=== PATIENT | male | born 1965 | race Two or more races ===

== ENCOUNTER 2017-03-24 22:07 | Inpatient (IN) | payer MEDICAID, OTHER, SELFPAY ==
[~2017-03-24] VITALS: Ht 167.6 cm; Wt 76.1 kg
[2017-03-24 23:22] LABS: BLOOD UREA NITROGEN 20 mg/dL (7-18)
[2017-03-25] MEDS ORDERED: FENTANYL PF 250 MCG/5ML ONE (01:07)
[2017-03-25] MEDS ORDERED: MIDAZOLAM 1 MG/ML, 2ML ONE (01:07)
[2017-03-25] MEDS ORDERED: ROCURONIUM 10 MG/ML ONE (01:13)
[2017-03-25] MEDS ORDERED: NEOSTIGMINE 1 MG/ML, 10ML ONE (01:13)
[2017-03-25] MEDS ORDERED: SUCCINYLCHOLINE 20 MG/ML, 10ML ONE (01:13)
[2017-03-25] MEDS ORDERED: PROPOFOL 10 MG/ML, 20ML ONE (01:13)
[2017-03-25] MEDS ORDERED: ONDANSETRON 2MG/ML, 2ML ONE (01:13)
[2017-03-25] MEDS ORDERED: KETOROLAC 30 MG/1 ML ONE (01:13)
[2017-03-25] MEDS ORDERED: CEFAZOLIN 1,000 MG ONE (01:13)
[2017-03-25] MEDS ORDERED: GLYCOPYRROLATE 0.2MG/1ML ONE (01:13)
[2017-03-25] MEDS ORDERED: OXYcodone 5 MG/5 ML ORAL.SOL UDC PO PRN (01:30)
[2017-03-25] MEDS ORDERED: METOPROLOL 1 MG/ML, 5ML IV PRN (01:30)
[2017-03-25] MEDS ORDERED: ACETAMINOPHEN 325 MG TABLET PO PRN (01:30)
[2017-03-25] MEDS ORDERED: hydrALAzine 20 MG/ML, 1ML IV PRN (01:30)
[2017-03-25] MEDS ORDERED: MEPERIDINE/PF 25MG/0.5ML IVPush PRN (01:30)
[2017-03-25] MEDS ORDERED: ONDANSETRON 2MG/ML, 2ML IVPush PRN (01:30)
[2017-03-25] MEDS ORDERED: PROMETHAZINE 25 MG/ML, 1ML IV PRN (01:30)
[2017-03-25] MEDS ORDERED: LABETALOL 5MG/ML, 20ML IV PRN (01:30)
[2017-03-25] MEDS ORDERED: ALBUTEROL SULFATE 2.5 MG/3 ML NPPB PRN (01:30)
[2017-03-25] MEDS ORDERED: EPHEDRINE 50 MG/ML, 1ML IVPush PRN (01:30)
[2017-03-25] MEDS ORDERED: HYDROmorphone 1 MG/ML, 1ML IV PRN (01:30)
[2017-03-25] MEDS ORDERED: ACETAMINOPHEN 650 MG/20.3 ML UDC ONE (01:53)
[2017-03-25] MEDS ORDERED: OXYcodone 5 MG/5 ML ORAL.SOL UDC ONE (01:53)
[2017-03-25] MEDS ORDERED: FENTANYL PF 100 MCG/2ML ONE (01:53)
[2017-03-25] MEDS ORDERED: HYDROcodone/APAP 10/325 MG TABLET PO PRN (02:00)
[2017-03-25] MEDS: FENTANYL PF 100 MCG/2ML IV PRN ×2 (02:00→02:05)
[2017-03-25] MEDS ORDERED: VANCOMYCIN PER PHARMACY MC PRN (02:00)
[2017-03-25] MEDS ORDERED: VANCOMYCIN PMX 1GM/200ML 200 ML IVPB SCH (02:00)
[2017-03-25] MEDS ORDERED: CEFAZOLIN PMX 2GM/50ML 50 ML IVPB SCH (02:00)
[2017-03-25] MEDS: HEPARIN 5,000 UNITS/ML, 1ML SQ SCH ×3 (02:30→17:50)
[2017-03-25 02:45] VITALS: BP 117/75
[2017-03-25] MEDS: OXYcodone/APAP 5/325MG TABLET PO PRN ×4 (03:13→19:49)
[2017-03-25] MEDS ORDERED: PHARMACOKINETIC MONITORING MC PRN (03:30)
[2017-03-25] MEDS ORDERED: VANCOMYCIN 1,300 MG in SODIUM CHLORIDE 0.9% 250 ML IV SCH ×2 (03:30→21:30)
[2017-03-25] MEDS ORDERED: PHARMACOKINETIC CONSULTATION MC ONE (03:30)
[2017-03-25 04:39] LABS: BLOOD UREA NITROGEN 20 mg/dL (7-18)
[2017-03-25] MEDS: PIPERACILLIN/TAZO/PMX 3.375GM 50 ML IV SCH ×3 (06:48→21:29)
[2017-03-25 07:12] VITALS: BP 107/64
[2017-03-25] MEDS: INSULIN REGULAR 100 UNITS/ML, 3ML VIAL SQ-INSULIN SCH ×4 (09:00→21:30)
[2017-03-25 13:18] VITALS: BP 101/58
[2017-03-25 19:21] VITALS: BP 118/71
[2017-03-25] MEDS: INSULIN DETEMIR 100 UNITS/ML, PEN SQ-INSULIN SCH (20:05)
[2017-03-25] MEDS: METOPROLOL TARTRATE 25 MG TABLET PO SCH (20:06)
[2017-03-26 01:32] VITALS: BP 108/63
[2017-03-26] MEDS: HEPARIN 5,000 UNITS/ML, 1ML SQ SCH ×3 (02:00→18:21)
[2017-03-26] MEDS: OXYcodone/APAP 5/325MG TABLET PO PRN ×5 (02:02→18:38)
[2017-03-26] MEDS: PIPERACILLIN/TAZO/PMX 3.375GM 50 ML IV SCH ×4 (03:36→20:52)
[2017-03-26] MEDS: morphine SULFATE 10 MG/ML, 1ML IVPush PRN ×4 (04:29→14:15)
[2017-03-26] MEDS: ASPIRIN 81 MG TABLET EC PO SCH (05:26)
[2017-03-26] MEDS: METOPROLOL TARTRATE 25 MG TABLET PO SCH ×2 (05:26→18:20)
[2017-03-26] MEDS ORDERED: PNEUMOCOCCAL 23 VACCINE IM-VACC ONE (05:30)
[2017-03-26 07:41] VITALS: BP 107/67
[2017-03-26] MEDS: INSULIN DETEMIR 100 UNITS/ML, PEN SQ-INSULIN SCH ×2 (07:59→21:18)
[2017-03-26] MEDS: INSULIN REGULAR 100 UNITS/ML, 3ML VIAL SQ-INSULIN SCH ×4 (07:59→21:19)
[2017-03-26] MEDS ORDERED: VANCOMYCIN 1,300 MG in SODIUM CHLORIDE 0.9% 250 ML IV SCH (10:00)
[2017-03-26] MEDS: VANCOMYCIN 1,400 MG in SODIUM CHLORIDE 0.9% 250 ML IV SCH ×2 (10:52→22:13)
[2017-03-26 14:04] VITALS: BP 100/66
[2017-03-26 18:24] VITALS: BP 112/62
[2017-03-26 19:20] VITALS: BP 112/61
[2017-03-27 01:29] VITALS: BP 104/62
[2017-03-27] MEDS: PIPERACILLIN/TAZO/PMX 3.375GM 50 ML IV SCH ×4 (02:33→21:33)
[2017-03-27] MEDS: HEPARIN 5,000 UNITS/ML, 1ML SQ SCH ×3 (02:33→17:28)
[2017-03-27 06:16] LABS: ASPARTATE AMINO TRANSFERASE 39 U/L (15-37); BLOOD UREA NITROGEN 18 mg/dL (7-18)
[2017-03-27 06:22] VITALS: BP 103/70
[2017-03-27] MEDS: METOPROLOL TARTRATE 25 MG TABLET PO SCH ×2 (06:23→17:28)
[2017-03-27] MEDS: ASPIRIN 81 MG TABLET EC PO SCH (06:23)
[2017-03-27 06:40] VITALS: BP 105/63
[2017-03-27] MEDS: INSULIN REGULAR 100 UNITS/ML, 3ML VIAL SQ-INSULIN SCH ×4 (07:00→21:00)
[2017-03-27] MEDS: INSULIN DETEMIR 100 UNITS/ML, PEN SQ-INSULIN SCH ×2 (09:17→16:41)
[2017-03-27] MEDS: VANCOMYCIN 1,400 MG in SODIUM CHLORIDE 0.9% 250 ML IV SCH ×2 (11:07→22:53)
[2017-03-27 13:35] VITALS: BP 114/67
[2017-03-27] MEDS: OXYcodone/APAP 5/325MG TABLET PO PRN (15:33)
[2017-03-27 18:34] VITALS: BP 99/60
[2017-03-27] MEDS: SIMVASTATIN 40 MG TABLET PO SCH (21:33)
[2017-03-28 00:59] VITALS: BP 113/68
[2017-03-28] MEDS: PIPERACILLIN/TAZO/PMX 3.375GM 50 ML IV SCH ×4 (02:48→21:08)
[2017-03-28] MEDS: HEPARIN 5,000 UNITS/ML, 1ML SQ SCH ×3 (02:48→18:22)
[2017-03-28] MEDS: ASPIRIN 81 MG TABLET EC PO SCH (06:05)
[2017-03-28] MEDS: METOPROLOL TARTRATE 25 MG TABLET PO SCH ×2 (06:06→18:22)
[2017-03-28] MEDS: INSULIN REGULAR 100 UNITS/ML, 3ML VIAL SQ-INSULIN SCH ×5 (06:13→21:09)
[2017-03-28 07:24] VITALS: BP 116/70
[2017-03-28] MEDS: INSULIN DETEMIR 100 UNITS/ML, PEN SQ-INSULIN SCH ×2 (08:54→21:09)
[2017-03-28] MEDS: VANCOMYCIN 1,400 MG in SODIUM CHLORIDE 0.9% 250 ML IV SCH ×2 (10:04→22:01)
[2017-03-28 12:58] VITALS: BP 121/72
[2017-03-28] MEDS: OXYcodone/APAP 5/325MG TABLET PO PRN (15:40)
[2017-03-28 18:38] VITALS: BP 143/62
[2017-03-28] MEDS: SIMVASTATIN 40 MG TABLET PO SCH (21:09)
[2017-03-29 00:29] VITALS: BP 117/70
[2017-03-29] MEDS: PIPERACILLIN/TAZO/PMX 3.375GM 50 ML IV SCH ×4 (03:17→22:01)
[2017-03-29] MEDS: HEPARIN 5,000 UNITS/ML, 1ML SQ SCH ×4 (03:17→17:39)
[2017-03-29 06:27] VITALS: BP 120/80
[2017-03-29] MEDS: METOPROLOL TARTRATE 25 MG TABLET PO SCH ×2 (06:29→17:39)
[2017-03-29] MEDS: ASPIRIN 81 MG TABLET EC PO SCH (06:29)
[2017-03-29] MEDS: INSULIN REGULAR 100 UNITS/ML, 3ML VIAL SQ-INSULIN SCH ×4 (07:00→21:00)
[2017-03-29 08:23] VITALS: BP 125/77
[2017-03-29] MEDS: INSULIN DETEMIR 100 UNITS/ML, PEN SQ-INSULIN SCH ×3 (08:36→17:18)
[2017-03-29] MEDS: VANCOMYCIN 1,400 MG in SODIUM CHLORIDE 0.9% 250 ML IV SCH ×3 (10:00→22:53)
[2017-03-29 13:38] VITALS: BP 115/67
[2017-03-29] MEDS: OXYcodone/APAP 5/325MG TABLET PO PRN (17:19)
[2017-03-29 18:57] VITALS: BP 138/84
[2017-03-29] MEDS ORDERED: CEFAZOLIN 1,000 MG IV SCH (19:00)
[2017-03-29] MEDS: SIMVASTATIN 40 MG TABLET PO SCH (20:05)
[2017-03-29] MEDS: CEFAZOLIN PMX 2GM/50ML 50 ML IV SCH (20:05)
[2017-03-30 01:31] VITALS: BP 96/60
[2017-03-30] MEDS: HEPARIN 5,000 UNITS/ML, 1ML SQ SCH ×3 (03:28→19:32)
[2017-03-30] MEDS: PIPERACILLIN/TAZO/PMX 3.375GM 50 ML IV SCH ×4 (03:28→21:43)
[2017-03-30] MEDS: CEFAZOLIN PMX 2GM/50ML 50 ML IV SCH ×3 (04:10→20:48)
[2017-03-30 05:22] LABS: BLOOD UREA NITROGEN 17 mg/dL (7-18)
[2017-03-30] MEDS: METOPROLOL TARTRATE 25 MG TABLET PO SCH ×2 (06:00→17:45)
[2017-03-30 06:45] VITALS: BP 105/67
[2017-03-30] MEDS: ASPIRIN 81 MG TABLET EC PO SCH (06:45)
[2017-03-30] MEDS: INSULIN REGULAR 100 UNITS/ML, 3ML VIAL SQ-INSULIN SCH ×4 (07:00→19:19)
[2017-03-30 07:29] VITALS: BP 115/69
[2017-03-30] MEDS: INSULIN DETEMIR 100 UNITS/ML, PEN SQ-INSULIN SCH ×2 (08:00→21:42)
[2017-03-30] MEDS: VANCOMYCIN 1,400 MG in SODIUM CHLORIDE 0.9% 250 ML IV SCH ×2 (11:10→22:52)
[2017-03-30 13:21] VITALS: BP 134/83
[2017-03-30] MEDS: OXYcodone/APAP 5/325MG TABLET PO PRN (15:12)
[2017-03-30 17:45] VITALS: BP 106/65
[2017-03-30 19:30] VITALS: BP 112/75
[2017-03-30] MEDS: SIMVASTATIN 40 MG TABLET PO SCH (19:32)
[2017-03-31 03:30] VITALS: BP 111/65
[2017-03-31] MEDS: HEPARIN 5,000 UNITS/ML, 1ML SQ SCH ×3 (03:51→20:06)
[2017-03-31] MEDS: PIPERACILLIN/TAZO/PMX 3.375GM 50 ML IV SCH ×2 (03:51→09:33)
[2017-03-31] MEDS: ASPIRIN 81 MG TABLET EC PO SCH (05:39)
[2017-03-31] MEDS: METOPROLOL TARTRATE 25 MG TABLET PO SCH ×2 (05:39→17:09)
[2017-03-31] MEDS: CEFAZOLIN PMX 2GM/50ML 50 ML IV SCH ×2 (05:39→13:09)
[2017-03-31] MEDS: INSULIN REGULAR 100 UNITS/ML, 3ML VIAL SQ-INSULIN SCH ×4 (06:33→20:15)
[2017-03-31] MEDS: OXYcodone/APAP 5/325MG TABLET PO PRN (06:36)
[2017-03-31 07:04] VITALS: BP 126/77
[2017-03-31] MEDS ORDERED: INSULIN DETEMIR 100 UNITS/ML, PEN SQ-INSULIN SCH (09:00)
[2017-03-31] MEDS: VANCOMYCIN 1,400 MG in SODIUM CHLORIDE 0.9% 250 ML IV SCH (11:09)
[2017-03-31 12:33] VITALS: BP 115/61
[2017-03-31] MEDS: ERTAPENEM 1 GM in SODIUM CHLORIDE 0.9% 50 ML IV SCH (17:55)
[2017-03-31 19:31] VITALS: BP 121/70
[2017-03-31] MEDS: SIMVASTATIN 40 MG TABLET PO SCH (20:07)
[2017-03-31] MEDS: INSULIN DETEMIR 100 UNITS/ML, PEN SQ-INSULIN SCH (20:15)
[2017-04-01 01:28] VITALS: BP 111/69
[2017-04-01] MEDS: HEPARIN 5,000 UNITS/ML, 1ML SQ SCH ×3 (04:01→20:00)
[2017-04-01] MEDS: ASPIRIN 81 MG TABLET EC PO SCH (04:02)
[2017-04-01] MEDS: METOPROLOL TARTRATE 25 MG TABLET PO SCH ×2 (04:02→17:33)
[2017-04-01] MEDS: OXYcodone/APAP 5/325MG TABLET PO PRN ×2 (04:02→16:28)
[2017-04-01] MEDS: INSULIN REGULAR 100 UNITS/ML, 3ML VIAL SQ-INSULIN SCH ×4 (08:41→21:22)
[2017-04-01] MEDS: INSULIN DETEMIR 100 UNITS/ML, PEN SQ-INSULIN SCH ×2 (08:41→21:22)
[2017-04-01 09:00] VITALS: BP 107/65
[2017-04-01 12:40] VITALS: BP 125/75
[2017-04-01] MEDS: ERTAPENEM 1 GM in SODIUM CHLORIDE 0.9% 50 ML IV SCH (17:33)
[2017-04-01 19:53] VITALS: BP 100/68
[2017-04-01] MEDS: SIMVASTATIN 40 MG TABLET PO SCH (20:00)
[2017-04-02 01:40] VITALS: BP 98/60
[2017-04-02] MEDS: METOPROLOL TARTRATE 25 MG TABLET PO SCH ×2 (02:59→18:06)
[2017-04-02] MEDS: HEPARIN 5,000 UNITS/ML, 1ML SQ SCH ×3 (04:24→21:53)
[2017-04-02] MEDS: ASPIRIN 81 MG TABLET EC PO SCH (04:24)
[2017-04-02] MEDS: INSULIN REGULAR 100 UNITS/ML, 3ML VIAL SQ-INSULIN SCH ×4 (07:41→21:59)
[2017-04-02] MEDS: INSULIN DETEMIR 100 UNITS/ML, PEN SQ-INSULIN SCH ×2 (07:41→21:58)
[2017-04-02 08:09] VITALS: BP 109/66
[2017-04-02 13:41] VITALS: BP 111/71
[2017-04-02] MEDS: CEFAZOLIN PMX 2GM/50ML 50 ML IVPB SCH (17:19)
[2017-04-02] MEDS ORDERED: INSULIN DETEMIR 100 UNITS/ML, PEN SQ-INSULIN SCH ×2 (21:00)
[2017-04-02] MEDS: SIMVASTATIN 40 MG TABLET PO SCH (21:53)
[2017-04-03] MEDS: CEFAZOLIN PMX 2GM/50ML 50 ML IVPB SCH ×3 (01:20→17:30)
[2017-04-03 02:00] VITALS: BP 117/71
[2017-04-03] MEDS: ASPIRIN 81 MG TABLET EC PO SCH (06:36)
[2017-04-03] MEDS: HEPARIN 5,000 UNITS/ML, 1ML SQ SCH ×3 (06:36→22:35)
[2017-04-03] MEDS: METOPROLOL TARTRATE 25 MG TABLET PO SCH ×2 (06:41→17:31)
[2017-04-03 07:19] VITALS: BP 117/69
[2017-04-03] MEDS: INSULIN REGULAR 100 UNITS/ML, 3ML VIAL SQ-INSULIN SCH ×4 (07:41→21:22)
[2017-04-03] MEDS: INSULIN DETEMIR 100 UNITS/ML, PEN SQ-INSULIN SCH ×2 (07:41→21:21)
[2017-04-03 15:00] VITALS: BP 111/74
[2017-04-03 19:01] VITALS: BP 110/74
[2017-04-03] MEDS: SIMVASTATIN 40 MG TABLET PO SCH (21:22)
[2017-04-04] MEDS: CEFAZOLIN PMX 2GM/50ML 50 ML IVPB SCH ×3 (01:24→17:06)
[2017-04-04 02:55] VITALS: BP 90/52
[2017-04-04] MEDS: METOPROLOL TARTRATE 25 MG TABLET PO SCH ×2 (05:51→17:09)
[2017-04-04] MEDS: HEPARIN 5,000 UNITS/ML, 1ML SQ SCH ×3 (05:56→22:08)
[2017-04-04] MEDS: ASPIRIN 81 MG TABLET EC PO SCH (06:27)
[2017-04-04] MEDS: INSULIN REGULAR 100 UNITS/ML, 3ML VIAL SQ-INSULIN SCH ×4 (06:27→21:00)
[2017-04-04 06:47] VITALS: BP 106/57
[2017-04-04] MEDS: INSULIN DETEMIR 100 UNITS/ML, PEN SQ-INSULIN SCH ×2 (09:17→22:09)
[2017-04-04 15:21] VITALS: BP 99/64
[2017-04-04 18:23] VITALS: BP 106/64
[2017-04-04] MEDS: SIMVASTATIN 40 MG TABLET PO SCH (20:40)
[2017-04-05] MEDS: CEFAZOLIN PMX 2GM/50ML 50 ML IVPB SCH ×3 (01:03→16:43)
[2017-04-05 02:35] VITALS: BP 97/57
[2017-04-05] MEDS: METOPROLOL TARTRATE 25 MG TABLET PO SCH ×2 (05:57→16:43)
[2017-04-05] MEDS: ASPIRIN 81 MG TABLET EC PO SCH (06:12)
[2017-04-05] MEDS: HEPARIN 5,000 UNITS/ML, 1ML SQ SCH ×3 (06:13→22:04)
[2017-04-05] MEDS: INSULIN REGULAR 100 UNITS/ML, 3ML VIAL SQ-INSULIN SCH ×4 (06:28→21:16)
[2017-04-05 08:12] VITALS: BP 99/63
[2017-04-05] MEDS: INSULIN DETEMIR 100 UNITS/ML, PEN SQ-INSULIN SCH ×2 (09:06→21:15)
[2017-04-05 13:05] VITALS: BP 102/63
[2017-04-05 16:42] VITALS: BP 102/60
[2017-04-05 18:54] VITALS: BP 99/63
[2017-04-05] MEDS: SIMVASTATIN 40 MG TABLET PO SCH (21:17)
[2017-04-06] MEDS: CEFAZOLIN PMX 2GM/50ML 50 ML IVPB SCH ×3 (00:45→16:24)
[2017-04-06 01:44] VITALS: BP 106/68
[2017-04-06] MEDS: METOPROLOL TARTRATE 25 MG TABLET PO SCH ×2 (05:34→17:59)
[2017-04-06] MEDS: ASPIRIN 81 MG TABLET EC PO SCH (05:45)
[2017-04-06] MEDS: HEPARIN 5,000 UNITS/ML, 1ML SQ SCH ×3 (05:46→20:54)
[2017-04-06] MEDS: INSULIN REGULAR 100 UNITS/ML, 3ML VIAL SQ-INSULIN SCH ×4 (06:47→21:04)
[2017-04-06 07:06] VITALS: BP 94/54
[2017-04-06] MEDS: INSULIN DETEMIR 100 UNITS/ML, PEN SQ-INSULIN SCH ×2 (08:43→21:04)
[2017-04-06 12:59] VITALS: BP 136/84
[2017-04-06 19:23] VITALS: BP 116/70
[2017-04-06] MEDS: SIMVASTATIN 40 MG TABLET PO SCH (20:53)
[2017-04-07] MEDS: CEFAZOLIN PMX 2GM/50ML 50 ML IVPB SCH ×3 (01:20→17:54)
[2017-04-07 01:32] VITALS: BP 110/67
[2017-04-07 06:01] VITALS: BP 111/72
[2017-04-07] MEDS: ASPIRIN 81 MG TABLET EC PO SCH (06:02)
[2017-04-07] MEDS: METOPROLOL TARTRATE 25 MG TABLET PO SCH ×2 (06:03→17:54)
[2017-04-07] MEDS: HEPARIN 5,000 UNITS/ML, 1ML SQ SCH ×3 (06:03→22:42)
[2017-04-07] MEDS: INSULIN REGULAR 100 UNITS/ML, 3ML VIAL SQ-INSULIN SCH ×4 (06:06→21:00)
[2017-04-07 07:44] VITALS: BP 110/77
[2017-04-07] MEDS: INSULIN DETEMIR 100 UNITS/ML, PEN SQ-INSULIN SCH ×2 (08:58→22:56)
[2017-04-07 13:24] VITALS: BP 114/71
[2017-04-07 21:42] VITALS: BP 117/74
[2017-04-07] MEDS: SIMVASTATIN 40 MG TABLET PO SCH (22:42)
[2017-04-08] MEDS: CEFAZOLIN PMX 2GM/50ML 50 ML IVPB SCH ×3 (01:24→16:41)
[2017-04-08 02:09] VITALS: BP 102/63
[2017-04-08 05:14] LABS: ASPARTATE AMINO TRANSFERASE 27 U/L (15-37); BLOOD UREA NITROGEN 23 mg/dL (7-18)
[2017-04-08] MEDS: METOPROLOL TARTRATE 25 MG TABLET PO SCH ×2 (06:00→17:28)
[2017-04-08] MEDS: HEPARIN 5,000 UNITS/ML, 1ML SQ SCH ×2 (06:05→13:55)
[2017-04-08] MEDS: ASPIRIN 81 MG TABLET EC PO SCH (06:05)
[2017-04-08] MEDS: INSULIN REGULAR 100 UNITS/ML, 3ML VIAL SQ-INSULIN SCH ×4 (07:00→22:21)
[2017-04-08 07:31] VITALS: BP 107/69
[2017-04-08] MEDS: INSULIN DETEMIR 100 UNITS/ML, PEN SQ-INSULIN SCH ×2 (10:00→22:22)
[2017-04-08 14:21] VITALS: BP 126/78
[2017-04-08 20:18] VITALS: BP 101/56
[2017-04-08] MEDS: SIMVASTATIN 40 MG TABLET PO SCH (22:21)
[2017-04-09] MEDS: CEFAZOLIN PMX 2GM/50ML 50 ML IVPB SCH ×3 (01:16→17:36)
[2017-04-09 01:51] VITALS: BP 105/63
[2017-04-09] MEDS: METOPROLOL TARTRATE 25 MG TABLET PO SCH ×2 (06:00→18:34)
[2017-04-09] MEDS: ASPIRIN 81 MG TABLET EC PO SCH (06:08)
[2017-04-09] MEDS: INSULIN REGULAR 100 UNITS/ML, 3ML VIAL SQ-INSULIN SCH ×4 (07:00→19:46)
[2017-04-09 09:10] VITALS: BP 110/70
[2017-04-09] MEDS: INSULIN DETEMIR 100 UNITS/ML, PEN SQ-INSULIN SCH ×2 (09:25→19:46)
[2017-04-09 15:50] VITALS: BP 124/60
[2017-04-09] MEDS: SIMVASTATIN 40 MG TABLET PO SCH (19:46)
[2017-04-09 20:53] VITALS: BP 114/70
[2017-04-10] MEDS: CEFAZOLIN PMX 2GM/50ML 50 ML IVPB SCH ×3 (01:14→17:10)
[2017-04-10 02:11] VITALS: BP 112/68
[2017-04-10 06:34] VITALS: BP 117/73
[2017-04-10] MEDS: ASPIRIN 81 MG TABLET EC PO SCH (06:34)
[2017-04-10] MEDS: METOPROLOL TARTRATE 25 MG TABLET PO SCH ×2 (06:35→17:10)
[2017-04-10] MEDS: INSULIN DETEMIR 100 UNITS/ML, PEN SQ-INSULIN SCH ×2 (08:00→22:13)
[2017-04-10] MEDS: INSULIN REGULAR 100 UNITS/ML, 3ML VIAL SQ-INSULIN SCH ×4 (08:00→22:13)
[2017-04-10 14:24] VITALS: BP 120/77
[2017-04-10 21:04] VITALS: BP 110/72
[2017-04-10] MEDS: SIMVASTATIN 40 MG TABLET PO SCH (22:04)
[2017-04-11] MEDS: CEFAZOLIN PMX 2GM/50ML 50 ML IVPB SCH ×2 (01:12→08:26)
[2017-04-11 04:31] VITALS: BP 107/65
[2017-04-11 06:40] VITALS: BP 111/68
[2017-04-11] MEDS: ASPIRIN 81 MG TABLET EC PO SCH (06:47)
[2017-04-11] MEDS: METOPROLOL TARTRATE 25 MG TABLET PO SCH (06:47)
[2017-04-11] MEDS: INSULIN REGULAR 100 UNITS/ML, 3ML VIAL SQ-INSULIN SCH (07:00)
[2017-04-11] MEDS: INSULIN DETEMIR 100 UNITS/ML, PEN SQ-INSULIN SCH (08:25)
[2017-04-11] MEDS ORDERED: INSU100I28 SQ-INSULIN ×2 (09:20)
[2017-04-11] MEDS ORDERED: METO25TA35 PO (09:20)
[2017-04-11] MEDS ORDERED: OXYC1TAB7 PO (09:20)
[2017-04-11] MEDS ORDERED: CEPH-368 PO (09:20)
[2017-04-11] MEDS ORDERED: SIMV40TA3 PO (09:20)
[2017-04-11] MEDS ORDERED: ASPI-621 PO (09:20)
[2017-04-11 09:33] VITALS: BP 117/74
== END 2017-04-11 10:56 | disposition home or self-care (01) | DRG 500 ==
LOC: ED 03-25 00:35 → EDIP 03-25 01:52 → 4NOR 03-25 03:08 → DCLOUNGE 04-11 10:32
PROVIDERS: ADMIT Orthopaedic Surgery; ATTEND Orthopaedic Surgery
PROC: 0MDN0ZZ Extraction of Right Knee Bursa and Ligament, Open Approach (ICD-10-PCS; principal; 2017-03-25 01:00)
DX: M71.161 Other infective bursitis, right knee (principal); E43 Unspecified severe protein-calorie malnutrition; L03.115 Cellulitis of right lower limb; I25.10 Atherosclerotic heart disease of native coronary artery without angina pectoris; E11.65 Type 2 diabetes mellitus with hyperglycemia; F17.210 Nicotine dependence, cigarettes, uncomplicated; B95.61 Methicillin susceptible Staphylococcus aureus infection as the cause of diseases classified elsewhere; E78.5 Hyperlipidemia, unspecified; E11.649 Type 2 diabetes mellitus with hypoglycemia without coma; Z79.4 Long term (current) use of insulin; Z95.5 Presence of coronary angioplasty implant and graft; Z68.27 Body mass index [BMI] 27.0-27.9, adult; Z23 Encounter for immunization
CPT/HCPCS: 36415; 80048; 80053; 80061; 80202; 82962; 83036; 83735; 84100; 85025; 85651; 86141; 87040; 87070; 87075; 87077; 87147; 87186; 87205; 90732; 96374; J0690; J1335; J1644; J1815; J1885; J2250; J2405; J2543; J2704; J2710; J3010; J3370; J3490; J0330; J2270; J7050